=== PATIENT | male | born 1990 ===

== ENCOUNTER 2023-01-30 10:03 | Outpatient (CLI) | payer OTHER | END 2023-01-30 10:05 | disposition home or self-care (01) | LOC: SONOGRAMA 10:03 | PROVIDERS: ATTEND Pathology Anatomic Pathology & Clinical Pathology | DX: R22.1 Localized swelling, mass and lump, neck (principal) ==

== ENCOUNTER 2023-02-17 11:20 | Outpatient (CLI) | payer OTHER | END 2023-02-17 11:57 | disposition home or self-care (01) | LOC: SONOGRAMA 11:20 | PROVIDERS: ATTEND Pathology Anatomic Pathology & Clinical Pathology | DX: R59.0 Localized enlarged lymph nodes (principal) ==